=== PATIENT | male | born 1945 | race Caucasian/White ===

== ENCOUNTER 2017-04-01 13:32 | Inpatient (IN) ==
--- NOTE | 2017-04-01 14:00 | Emergency Department Note ---
Disposition Clinical Impression: Kidney stone, Elevated serum creatinine UTI (urinary tract infection) Qualifiers: Urinary tract infection type: site unspecified Hematuria presence: with hematuria Qualified Code(s): N39.0 - Urinary tract infection, site not specified Leukocytosis Qualifiers: Leukocytosis type: unspecified Qualified Code(s): D72.829 - Elevated white blood cell count, unspecified Disposition: Admitted As Inpatient Condition: Good General Adult HPI - General Chief complaint: ED Abdominal Pain Stated complaint: rt flank pain Time Seen by Provider: 04/01/17 13:40 Source: patient, EMS Limitations: no limitations Nursing Notes Reviewed: Yes Vital Signs Reviewed: Yes - History of Present Illness HPI Narrative: [facility] with severe hydronephrosis, elevated white count, evidence of UTI, elevated creatinine. Pain started last night. Similar to previous. Right flank. Sharp. Radiation to groin. [facility]'s [facility] highlights dictated below: White count of 18.2. Hemoglobin 16.6. Platelets of 189. Absolute neutrophil count elevated at 14.9. Sodium 142. Potassium 3.5. Chloride 105. CO2 28. Glucose 132. BUNs 25. Creatinine 1.62. GFR 44.9. Urinalysis shows turbid yellow urine with a specific gravity of 1.018 and a pH of 5.5 with protein of 30. Positive leuk esterase with greater than 180 WBCs. [address] abdomen and pelvis shows severe right hydronephrosis and hydroureter due to a 7 mm x 6 mm x 6 mm calculus in the distal right ureter there is nonspecific partially calcified area that could represent renal cell carcinoma and could be evaluated further with CT abdomen and pelvis without and with IV contrast. Inguinal hernias. Nonspecific prostate enlargement. Colonic diverticulosis. Bilateral nonobstructing renal calculi. Pain Scale: 0 - Related Data Allergies Allergy/AdvReac Type Severity Reaction Status Date / Time cefdinir [From Omnicef] Allergy See Verified 04/01/17 14:02 Comments Review of Systems: CONSTITUTIONAL: No weight loss, fever, chills, weakness or fatigue. HEENT: Eyes: No visual changes. Ears, Nose, Throat: No hearing loss, difficulty talking or unable to swallow. SKIN: No rash or itching. CARDIOVASCULAR: No chest pain, chest pressure or chest discomfort. No palpitations or edema. RESPIRATORY: No shortness of breath, cough or sputum. GASTROINTESTINAL: No anorexia, nausea, vomiting or diarrhea. No abdominal pain or blood. GENITOURINARY: No burning on urination or hematuria. NEUROLOGICAL: No headache, dizziness, syncope, paralysis, ataxia, numbness or tingling in the extremities. No change in bowel or bladder control. MUSCULOSKELETAL: No muscle pain, back pain, joint pain or stiffness. All systems ED: reviewed and negative except as stated. Past Medical History - Past Medical History Attestation: Yes The following information was validated with the patient. Source: patient, old records reviewed Medical history: Reports: hypertension, kidney stones - Social History Smoking Status: Never smoker Alcohol use: Reports: none Drug use: Reports: none Physical Exam General appearance: NAD, conversant Eyes: anicteric sclerae, moist conjunctivae; no lid-lag; PERRL HENT: Atraumatic; oropharynx clear with moist mucous membranes Neck: Normal appearance; Trachea midline Chest: Symmetrical chest rise; No respiratory distress Abdomen: Soft nontender to palpation. No CVA tenderness. Extremities: No peripheral edema or extremity tenderness Skin: Normal temperature, turgor and texture; no rash, ulcers or subcutaneous nodules Psych: Appropriate mood and affect Neuro: Awake and alert - General Limitations: no limitations General appearance: alert Course - Reevaluation(s) Reevaluation #1: Pain remains controlled. - Consultations Consultation #1: Discussed with urology. Patient febrile to the hospital service so they can consult. Recommends Levaquin 500 mg for antibiotic. Consultation #2: Discussed with hospitalist Dr. Delvalle. Patient accepted for admission. Vital Signs Temperature 98.1 F 04/01/17 13:36 Pulse Rate 78 04/01/17 13:36 Respiratory Rate 16 04/01/17 13:36 Blood Pressure 146/87 04/01/17 13:36 O2 Sat by Pulse Oximetry 96 04/01/17 13:36 Temperature 98.1 F 04/01/17 13:36 Pulse Rate 74 04/01/17 14:48 Respiratory Rate 16 04/01/17 15:42 Blood Pressure 143/90 04/01/17 15:42 O2 Sat by Pulse Oximetry 95 04/01/17 14:48 Oxygen Delivery Oxygen Delivery Room Air Medical Decision Making - Medical Records Medical records reviewed: Yes I reviewed the patient's medical records. - Lab Data Lab results reviewed: Yes I reviewed the patient's lab results. Lab Results 04/01/17 Range/Units 14:30 Urine Color Dark Yellow (Yellow) Urine Clarity Turbid A (Clear) Urine pH 5.5 (5.0-8.0) pH Units Ur Specific [place] 1.025 (1.010-1.025) Urine Protein Trace (Neg-Trace) mg/dL Urine Glucose (UA) Normal (Normal) mg/dL Urine Ketones Negative (Negative) mg/dL Urine Blood Moderate H (Negative) Urine Nitrite Negative (Negative) Urine Bilirubin Negative (Negative) Urine Urobilinogen Normal (Normal) mg/dL Ur Leukocyte Esterase Large H (Negative) Urine Microscopic RBC 5-15 H (0-3) per hpf Urine Microscopic WBC TNTC H (0-3) per hpf Ur Squamous Epith Cells Many H (None-Few) per lpf Ur Renal Epithelial Cell Few (None-Few) per hpf Urine Bacteria Few (None-Few) per hpf Hyaline Casts None Seen (None-Few) per lpf - Radiology Data Radiology results reviewed: Yes I reviewed the patient's radiology results. Attestation Statement - Attestation Attestation: I, Kedar Abdi, examined this patient and my medical decision-making was reviewed with the JACKAROO/PA/Advanced Practice Nurse/Resident Physician. I agree with the documented findings, disposition and treatment plan as described except to the extent set forth below. 72-year-old male sent to the emergency department from the [place] urgent care. Patient has a large ureteral stone with associated urinary tract infection. Patient states his pain is well controlled after administration of Toradol by the [place]. Patient also complains of having chills over the past 24 hours. Vital signs stable in the emergency department. He is afebrile emergency department however he will be started on antibiotics in the emergency department. Resident spoke with the urologist who recommended Levaquin. Patient is comfortable with the plan for admission to the hospital.
[2017-04-01] MEDS ORDERED: Levofloxacin 500 MG/100 ML 500 MG/100 ML BAG IVPB ONE (14:39)
[2017-04-01 14:57] LABS: Bilirubin,Urine Negative (Negative); Blood,Urine Moderate (Negative); Clarity,Urine Turbid (Clear); Color,Urine Dark Yellow (Yellow); Glucose,Urine (UA) Normal (Normal); Ketones,Urine Negative (Negative); Leukocyte Esterase,Urine Large (Negative); Nitrite,Urine Negative (Negative); PH,Urine 5.5 pH Units (5.0-8.0); Protein,Urine Trace mg/dL (Neg-Trace); Specific Gravity,Urine 1.025 (1.010-1.025); Urobilinogen,Urine Normal (Normal)
[2017-04-01 14:59] LABS: Bacteria,Urine Few per hpf (None-Few); Hyaline Casts,Urine None Seen per lpf (None-Few); Squamous Epithelial Cell,Urine Many per lpf (None-Few); WBC,Urine TNTC per hpf (0-3)
[2017-04-01 15:10] LABS: Renal Epithelial Cells,Urine Few per hpf (None-Few)
--- NOTE | 2017-04-01 17:03 | Urology - Consult Note ---
Date of Encounter: 04/01/17 Time of Encounter: 17:01 - Assessment and Plan (1) Right ureteral calculus Current Visit: Yes Status: Acute Assessment and plan: Plan be to take patient to the operating room tomorrow for cystoscopy and right ureteral stent placement. (2) Elevated serum creatinine Current Visit: Yes Status: Acute Assessment and plan: Will resolved with fluids and stenting of right ureter. (3) Right renal mass Current Visit: Yes Status: Acute Assessment and plan: This will need clarified with either CT with contrast or MRI with contrast. This can be done on outpatient basis Urology CN:AMAURY Consult date: 04/01/17 Reason for consult Urology: Hydronephrosis Requesting physician: Marcus Coffman History of present illness: Brandon is a 72-year-old male with a history of recent severe right-sided flank pain. He was seen at the [facility] where he was found to have a distal 7 x 8 mm ureteral stone on the right side. Causing significant hydronephrosis. Patient also found to have a possible calcified renal mass in the right side. This had slightly increased in size over the past couple of years. Patient states that his pain is currently controlled. He did have a elevated WBC count of 18,000. No fevers at this time. Past Med Surg Social Fam HX - Past Medical History Medical history: hypertension, kidney stones Psychiatric history: no psych history - Social History Smoking Status: Never smoker Smokeless Tobacco Status: No Alcohol use: none Drug use: none - Family History Mother Family Member Ethnicity: Non- Living Status: Hx Family GI Disorders: Yes (Kidney stones) Father History Unknown: Yes Adopted: No Family Member Ethnicity: Non- Living Status: Cause of : [place] Hx Family Cardiac Disorders: Yes ([place]) Brother History Unknown: Yes Family Member Ethnicity: Non- Living Status: Still Living Hx Family Endocrine Disorder: Yes (Diabetic) Medications and Allergies Aspirin 81 mg PO DAILY 04/01/17 [History] Carboxymethylcellulose Sodium [Refresh Liquigel] 1 drop BOTH EYES QID 04/01/17 [ History] Lisinopril [Zestril] 5 mg PO DAILY 04/01/17 [History] Methocarbamol [Robaxin] 500 mg PO BID 04/01/17 [History] Multivitamin [Multi-Day Vitamins] 1 each PO DAILY 04/01/17 [History] Naproxen [Naprosyn] 500 mg PO BID 04/01/17 [History] [place]-3/Dha/Epa/Fish Oil [Fish Oil 1,000 mg Softgel] 1,000 mg PO DAILY 04/01/17 [History] Omeprazole Magnesium [Prilosec Otc] 20 mg PO DAILY 04/01/17 [History] Terazosin HCl 4 mg PO 1800 04/01/17 [History] hydroCHLOROthiazide [Hydrochlorothiazide] 12.5 mg PO DAILY 04/01/17 [History] Allergies cefdinir [From Omnicef] Allergy (Verified 04/01/17 14:02) See Comments Review of Systems - Constitutional no fever(s) - EENT Nose, mouth and throat: no dizziness - Cardiovascular no chest pain - Gastrointestinal abdominal pain - Genitourinary flank pain - Musculoskeletal back pain - Integumentary no erythema - Psychiatric no anxiety - Hematologic/Lymphatic no easy bleeding Exam Initial Vital Signs Temp Pulse Resp BP Pulse Ox 98.1 F 78 16 146/87 96 04/01/17 13:36 04/01/17 13:36 04/01/17 13:36 04/01/17 13:36 04/01/17 13:36 - General physical appearance Present: well developed - Eyes Present: PERRL - ENT Present: normal nares - Neck Present: no masses - Respiratory Present: normal respiratory effort - Abdomen Abdomen: Present: soft - Integumentary Present: no rash Urology Results - Labs Abnormal lab results Urine Clarity Turbid (Clear) A 04/01/17 14:30 Urine Blood Moderate (Negative) H 04/01/17 14:30 Ur Leukocyte Esterase Large (Negative) H 04/01/17 14:30 Urine Microscopic RBC 5-15 per hpf (0-3) H 04/01/17 14:30 Urine Microscopic WBC TNTC per hpf (0-3) H 04/01/17 14:30 Ur Squamous Epith Cells Many per lpf (None-Few) H 04/01/17 14:30 All other labs normal. - Imaging CT scan - abdomen: image reviewed CT scan - pelvis: image reviewed Consult Discharge Plan - Plan [facility]errals: [facility] [Primary Care Provider] -
[2017-04-01] MEDS ORDERED: Naloxone 0.4 MG/ML INJ IVP PRN (17:50)
[2017-04-01] MEDS ORDERED: *HR* OxyCODONE Immed Rel 5 MG TABLET PO PRN (17:50)
[2017-04-01] MEDS ORDERED: *HR* HYDROmorphone (PF) 1 MG/ML SYRINGE IVP PRN (17:50)
--- NOTE | 2017-04-01 17:55 | Internal Med History&Physical ---
Date of Encounter: 04/01/17 Time of Encounter: 17:53 Assessment and Plan (1) Kidney stone Current visit: Yes Status: Acute Patient has right-sided kidney stone with hydronephrosis. Urology has been consulted, plan for intervention tomorrow. Keep nothing by mouth past midnight. Follow urology consultation. Denies hematuria at this time. (2) Elevated serum creatinine Current visit: Yes Status: Acute Most likely post obstructive in etiology from hydronephrosis. Will avoid nephrotoxic agents, hold naproxen and lisinopril for now that he was taking at home. Monitor Chem-7, we will keep IV fluids for tonight. (3) UTI (urinary tract infection) Current visit: Yes Status: Acute Patient denies any urinary symptoms at this time. However given the elevated white count, ureteric stone and hydronephrosis, will treat with levofloxacin as recommended by urology. Continue IV levofloxacin, follow urine culture results. Qualifiers: Urinary tract infection type: site unspecified Hematuria presence: with hematuria Qualified Code(s): N39.0 - Urinary tract infection, site not specified; R31.9 - Hematuria, unspecified (4) Right renal mass Current visit: Yes Status: Acute CT abdomen showed calcification questionable renal mass. This needs to be evaluated with IV contrast. However given HONG and planned intervention tomm, he needs to have this done once kidney fxn improves and which can be done as OP. Internal Medicine - H&P: HPI Chief complaint: rt. flank pain Admitted From: Intrahospital Transfer Plans for Post Hospital Care: Home History of present illness: Mr. Juarez is a 72 year old male transferred from the [place] urgent care secondary to kidney stone with severe hydronephrosis, elevated white count, UTI , elevated creatinine. As per the patient, Pain started last night which is at the right flank, radiating to groin. Patient denies any fever, burning micturition, nausea, vomiting. Patient reports that he has recurrent kidney stones since 1960s and has been requiring multiple treatments including lithotripsy. He says that he was given Toradol at the ED which helped the pain, however it is starting to pack up again. Urology was consulted from ED, Dr. vasques has seen the patient and has planned for intervention tomorrow. [facility] highlights dictated below: White count of 18.2. Hemoglobin 16.6. Platelets of 189. Absolute neutrophil count elevated at 14.9. Sodium 142. Potassium 3.5. Chloride 105. CO2 28. Glucose 132. BUNs 25. Creatinine 1.62. GFR 44.9. Urinalysis shows turbid yellow urine with a specific gravity of 1.018 and a pH of 5.5 with protein of 30. Positive leuk esterase with greater than 180 WBCs. [address] abdomen and pelvis shows severe right hydronephrosis and hydroureter due to a 7 mm x 6 mm x 6 mm calculus in the distal right ureter there is nonspecific partially calcified area that could represent renal cell carcinoma and could be evaluated further with CT abdomen and pelvis without and with IV contrast. Inguinal hernias. Nonspecific prostate enlargement. Colonic diverticulosis. Bilateral nonobstructing renal calculi. Past Med Surg Social Fam HX - Past Medical History Medical history: hypertension, kidney stones Psychiatric history: no psych history - Social History Smoking Status: Never smoker Smokeless Tobacco Status: No Alcohol use: none Drug use: none - Family History Mother Family Member Ethnicity: Non- Living Status: Hx Family GI Disorders: Yes (Kidney stones) Father History Unknown: Yes Adopted: No Family Member Ethnicity: Non- Living Status: Cause of : [place] Hx Family Cardiac Disorders: Yes ([place]) Brother History Unknown: Yes Family Member Ethnicity: Non- Living Status: Still Living Hx Family Endocrine Disorder: Yes (Diabetic) Internal Medicine - H&P: Meds Aspirin 81 mg PO DAILY 04/01/17 [History] Carboxymethylcellulose Sodium [Refresh Liquigel] 1 drop BOTH EYES QID 04/01/17 [ History] Lisinopril [Zestril] 5 mg PO DAILY 04/01/17 [History] Methocarbamol [Robaxin] 500 mg PO BID 04/01/17 [History] Multivitamin [Multi-Day Vitamins] 1 each PO DAILY 04/01/17 [History] Naproxen [Naprosyn] 500 mg PO BID 04/01/17 [History] [place]-3/Dha/Epa/Fish Oil [Fish Oil 1,000 mg Softgel] 1,000 mg PO DAILY 04/01/17 [History] Omeprazole Magnesium [Prilosec Otc] 20 mg PO DAILY 04/01/17 [History] Terazosin HCl 4 mg PO 1800 04/01/17 [History] hydroCHLOROthiazide [Hydrochlorothiazide] 12.5 mg PO DAILY 04/01/17 [History] Allergies cefdinir [From Omnicef] Allergy (Verified 04/01/17 14:02) See Comments All Systems PM: A 10-system review of systems was performed and is negative for pertinent findings except as documented above in the HPI. - Constitutional Constitutional: as per HPI - EENT Eyes: as per HPI Ears: as per HPI Nose, mouth and throat: as per HPI - Breasts Breasts: as per HPI - Cardiovascular Cardiovascular ROS IM: as per HPI - Respiratory Respiratory: as per HPI - Gastrointestinal Gastrointestinal: as per HPI - Genitourinary Genitourinary ROS male: flank pain - Musculoskeletal Musculoskeletal ROS IM: as per HPI - Integumentary Integumentary IM: as per HPI - Neurological Neurological ROS: as per HPI - Constitutional Vitals: Temp Pulse Resp BP Pulse Ox 98.4 F 66 17 160/94 98 04/01/17 16:00 04/01/17 16:00 04/01/17 16:00 04/01/17 16:00 04/01/17 16:00 General appearance: Present: A&O X 3, no acute distress Exam: Neck supple Chest bilateral clear, no added sounds. CVS S1 and S2, no murmurs rubs or gallops. Abdomen soft, nontender, bowel sounds are present. Right flank tenderness positive. Extremities no edema. Neuro no focal deficits
[2017-04-01] MEDS: *HR* Heparin 5,000 UNIT/ML VIAL SQ SCH (18:28)
--- NOTE | 2017-04-01 19:06 | Anesthesia Evaluation PreOp ---
Date of Encounter: 04/01/17 Time of Encounter: 19:00 - Past History Planned Operation: Cystoscopy Rt Stent Cardiac History: HTN Pulmonary History: Denies Any Significant HX INTERNET MARKETING SPECIALIST History: Denies Any Significant HX Other Medical History: Renal (Acute Renal Failure from Hydronephrosis) Anesthesia History: No Prior Anesthetic Complications Alcohol Use: none Drug use: none Medications and Allergies Aspirin 81 mg PO DAILY 04/01/17 [History] Carboxymethylcellulose Sodium [Refresh Liquigel] 1 drop BOTH EYES QID 04/01/17 [ History] Lisinopril [Zestril] 5 mg PO DAILY 04/01/17 [History] Methocarbamol [Robaxin] 500 mg PO BID 04/01/17 [History] Multivitamin [Multi-Day Vitamins] 1 each PO DAILY 04/01/17 [History] Naproxen [Naprosyn] 500 mg PO BID 04/01/17 [History] [place]-3/Dha/Epa/Fish Oil [Fish Oil 1,000 mg Softgel] 1,000 mg PO DAILY 04/01/17 [History] Omeprazole Magnesium [Prilosec Otc] 20 mg PO DAILY 04/01/17 [History] Terazosin HCl 4 mg PO 1800 04/01/17 [History] hydroCHLOROthiazide [Hydrochlorothiazide] 12.5 mg PO DAILY 04/01/17 [History] Allergies cefdinir [From Omnicef] Allergy (Verified 04/01/17 14:02) See Comments - Meds/Allergy Pre-op Review Medications Reviewed: Yes Allergies Reviewed: Yes Beta Blockers on Current Med List: No Anesthesia Results - Labs Laboratory Tests 09/08/14 09/08/14 07:52 07:52 Hgb 11.6 L Hct 36.4 L Plt Count 161 Sodium 140 Potassium 3.7 BUN 11 Creatinine 0.84 - Imaging EKG: pending Anesthesia Exam O2 Sat Height 1.8 m Height 1.8 m Weight 95.254 kg Weight 95.073 kg O2 Sat by Pulse Oximetry 98 O2 Sat by Pulse Oximetry 95 O2 Sat by Pulse Oximetry 96 O2 Sat by Pulse Oximetry 96 Vital Signs Temp Pulse Resp BP Pulse Ox 98.1 F 78 16 146/87 96 04/01/17 13:36 04/01/17 13:36 04/01/17 13:36 04/01/17 13:36 04/01/17 13:36 Height: 5'11 Weight: 210 lbs NPO (# of Hours): MN Pain Scale: 0 - HEENT Pupil (Motor): Pupils equal, EOMI Mallampati: II Teeth: Missing, Edentulous Oral Opening: Greater than 3 - INTERNET MARKETING SPECIALIST LOC: Oriented INTERNET MARKETING SPECIALIST Motor: Normal RUE, Normal LUE, Normal RLE, Normal LLE, Normal Face INTERNET MARKETING SPECIALIST Sensory: Normal: RUE, LUE, RLE, LLE, Face - Cardiac Rhythm: Regular Murmur: None JVD: No Carotid Bruit: No - Pulmonary Breath Sounds: bilateral Clear Respiratory Effort: Symmetrical Anesthesia Assess/Plan ASA Score: 3 (HTN Extreme of Age, ARF) Modified Carolyn Scale for Level of Consciousness: Cooperative, oriented, and tranquil Anesthetic Plan: General Monitoring Plan: Standard Monitors Recovery Plan: PACU (Discussed GA, agrees to proceed)
[2017-04-01] MEDS: Methocarbamol 500 MG TABLET PO SCH (20:33)
[2017-04-01] MEDS: Acetaminophen 325 MG TABLET PO PRN (20:33)
[2017-04-02 04:01] LABS: Calcium 9.3 mg/dL (8.6-10.8); Potassium 3.2 mEq/L (3.5-4.5)
[2017-04-02] MEDS: *HR* Heparin 5,000 UNIT/ML VIAL SQ SCH ×2 (04:01→19:18)
[2017-04-02 04:03] LABS: Basophils % 0.2 %; Eosinophils # 0.1 K/mcL (0.0-0.6); Eosinophils % 0.6 %; Hematocrit 44.3 % (37.5-50.1); Hemoglobin 14.7 g/dL (12.9-16.9); Immature Granulocytes % 0.6 % (0-4); Lymphocytes # 2.1 K/mcL (0.6-4.6); Lymphocytes % 12.3 %; Mean Corpuscular HGB Conc 33.2 g/dL (31.6-35.5); Mean Corpuscular Volume 90.4 fL (83.0-100.0); Mean Platelet Volume 10.7 fL (9.4-12.4); Monocytes # 1.5 K/mcL (0.0-1.3); Monocytes % 9.2 %; Neutrophils # 12.9 K/mcL (1.6-8.9); Platelet Count 171 K/mcL (140-400); Red Cell Distribution Width 13.2 % (11.5-14.5); Segmented Neutrophils % 77.1 %
[2017-04-02] MEDS: Methocarbamol 500 MG TABLET PO SCH ×2 (07:05→20:02)
[2017-04-02] MEDS: Acetaminophen 325 MG TABLET PO PRN (07:11)
[2017-04-02] MEDS ORDERED: Aspirin 81 MG TAB.CHEW PO SCH (09:00)
--- NOTE | 2017-04-02 09:27 | Urology Progress Note ---
Date of Encounter: 04/02/17 Time of Encounter: 09:25 - Assessment and Plan (1) Right ureteral calculus Current Visit: Yes Status: Acute Assessment and plan: to or today for stent placement. (2) Elevated serum creatinine Current Visit: Yes Status: Acute (3) Right renal mass Current Visit: Yes Status: Acute Progress Note Narrative: patient seen. patient with fever last night. Objective Initial Vital Signs Temp Pulse Resp BP Pulse Ox 98.1 F 78 16 146/87 96 04/01/17 13:36 04/01/17 13:36 04/01/17 13:36 04/01/17 13:36 04/01/17 13:36 - General physical appearance Present: well developed - Abdomen Present: soft - Labs 04/02/17 03:22 04/02/17 03:22 Diabetes panel 04/02/17 Range/Units 03:22 Sodium 138 (136-145) mEq/L Potassium 3.2 L (3.5-4.5) mEq/L Chloride 105 (98-109) mEq/L Carbon Dioxide 24 (19-29) mEq/L BUN 30 H (8-26) mg/dL Creatinine 1.82 H (0.72-1.25) mg/dL Glucose 125 H (70-99) mg/dL Calcium 9.3 (8.6-10.8) mg/dL Calcium panel 04/02/17 Range/Units 03:22 Calcium 9.3 (8.6-10.8) mg/dL Pituitary panel 04/02/17 Range/Units 03:22 Sodium 138 (136-145) mEq/L Potassium 3.2 L (3.5-4.5) mEq/L Chloride 105 (98-109) mEq/L Carbon Dioxide 24 (19-29) mEq/L BUN 30 H (8-26) mg/dL Creatinine 1.82 H (0.72-1.25) mg/dL Glucose 125 H (70-99) mg/dL Calcium 9.3 (8.6-10.8) mg/dL Adrenal panel 04/02/17 Range/Units 03:22 Sodium 138 (136-145) mEq/L Potassium 3.2 L (3.5-4.5) mEq/L Chloride 105 (98-109) mEq/L Carbon Dioxide 24 (19-29) mEq/L BUN 30 H (8-26) mg/dL Creatinine 1.82 H (0.72-1.25) mg/dL Glucose 125 H (70-99) mg/dL Calcium 9.3 (8.6-10.8) mg/dL Consult Discharge Plan - Plan [facility]errals: [facility] [Primary Care Provider] -
--- NOTE | 2017-04-02 10:05 | Internal Med Progress Note ---
Date of Encounter: 04/02/17 Time of Encounter: 09:15 - Assessment and plan (1) Right ureteral calculus Current Visit: Yes Status: Acute Assessment and plan: [facility]-sided hydronephrosis and hydroureter with an obstructing calculus. Urology is on board, plan is for stent placement later today. Patient's pain is currently controlled. He denies nausea. Awaiting OR. [facility]: CT abdomen and pelvis shows severe right hydronephrosis and hydroureter due to a 7 mm x 6 mm x 6 mm calculus in the distal right ureter there is nonspecific partially calcified area that could represent renal cell carcinoma and could be evaluated further with CT abdomen and pelvis without and with IV contrast. Inguinal hernias. Nonspecific prostate enlargement. Colonic diverticulosis. Bilateral nonobstructing renal calculi. (2) UTI (urinary tract infection) Current Visit: Yes Status: Acute Assessment and plan: Urinalysis consistent with urinary tract infection. Continue levofloxacin. Low -grade fever noted this morning with leukocytosis. Vital signs are stable- mild tachycardia noted in setting of fever. BP stable. Meets SIRS criteria. On examination, patient is alert and oriented x3. He states his pain is controlled. He is diaphoretic and pale, capillary refill brisk to all four extremities. Will initiated IVF and monitor closely for signs of sepsis. Will check lactic acid levels as well as blood cultures. Suspect VS and Sx will improve with stent placement per Urology. Qualifiers: Urinary tract infection type: site unspecified Hematuria presence: with hematuria Qualified Code(s): N39.0 - Urinary tract infection, site not specified; R31.9 - Hematuria, unspecified (3) Right renal mass Current Visit: Yes Status: Acute Assessment and plan: Recommendation is for outpatient follow-up (4) Leukocytosis Current Visit: Yes Status: Acute (5) HONG (acute kidney injury) Current Visit: Yes Status: Acute Assessment and plan: Likely secondary to obstructive renal calculi, will trend. Urology is on board , OR later today. (6) Hypokalemia Current Visit: Yes Status: Acute Assessment and plan: Repleted with IV fluids, will trend - Subjective Interval history: Patient seen and examined. On examination, patient resting supine in bed. Patient stating his pain is currently at a tolerable level. He denies nausea. He denies shortness of breath. He denies concerns or questions at this time. - Constitutional Vitals: Temp Pulse Resp BP Pulse Ox 99.3 F 94 15 146/77 92 04/02/17 09:37 04/02/17 06:55 04/02/17 06:55 04/02/17 06:55 04/02/17 07:13 General appearance: Present: A&O X 3, pleasant, no acute distress, answers questions appropriately - Head Head exam: Present: atraumatic, normocephalic - Eye Eye exam: Present: PERRL, conjuntiva pink, sclera anicteric Pupils: Present: PERRL - Neck Neck exam general surgery: Present: supple, trachea midline. Absent: lymphadenopathy - Respiratory Respiratory exam: Present: CTAB. Absent: accessory muscle use, rales, respiratory distress, rhonchi, wheezes - Cardiovascular Cardiovascular exam: Present: RRR, +S1, +S2. Absent: diastolic murmur, gallop, rubs, systolic murmur - GI/Abdominal GI/Abdominal exam: Present: distended, hypoactive bowel sounds, soft, tenderness , no peritoneal signs - Extremities Exam Extremities exam: Present: warm, radial pulses palpable and symetrical. Absent : calf tenderness, cyanotic, pedal edema - Neurological Exam Neurological exam: Present: alert, CN II-XII intact, oriented X3, no focal deficits, strengths equal and symetr throughout. Absent: pronater drift, facial droop, speech deficit - Skin Skin exam: Present: diaphoretic, intact, pallor, warm Internal Medicine: Result - Labs CBC & Chem 7: 04/02/17 03:22 04/02/17 03:22 Labs: Short CBC 04/02/17 Range/Units 03:22 WBC 16.7 H (4.3-11.1) K/mcL Hgb 14.7 (12.9-16.9) g/dL Hct 44.3 (37.5-50.1) % Plt Count 171 (140-400) K/mcL Neutrophils # 12.9 H (1.6-8.9) K/mcL BMP 04/02/17 03:22 Sodium 138 Potassium 3.2 L Chloride 105 Carbon Dioxide 24 BUN 30 H Creatinine 1.82 H Glucose 125 H Calcium 9.3 Consult Discharge Plan - Plan [facility]errals: [facility] [Primary Care Provider] -
[2017-04-02] MEDS ORDERED: 0.9 % Sodium Chloride w KCl 40 MEQ/1,000 ML MLS IVC SCH (10:15)
[2017-04-02] MEDS ORDERED: *HR* Midazolam HCl 2 MG/2 ML VIAL ONE (15:25)
[2017-04-02] MEDS ORDERED: Lidocaine -MPF 2% 2 ML VIAL ONE (15:38)
[2017-04-02] MEDS ORDERED: *HR* Propofol 200 MG/20 ML VIAL IVP ONE (15:38)
[2017-04-02] MEDS ORDERED: *HR* FentaNYL (PF) 100 MCG/2 ML VIAL ONE (15:38)
[2017-04-02] MEDS ORDERED: Ondansetron 4 MG/2 ML VIAL ONE (15:38)
--- NOTE | 2017-04-02 16:35 | Operative Note ---
Date of procedure: 04/02/17 Pre-op diagnosis: right ureteral stone and fever Post-op diagnosis: same Procedure: Cystoscopy and right 6 x 28 cm ureteral stent placement Anesthesia: LACHO Surgeon: Melchor Wall Condition: stable Disposition: PACU Procedure in Detail: Patient was prepped and draped in normal sterile fashion. Timeout procedure performed. I then inserted the cystoscope into the patient's bladder. Patient had mild to moderate trilobar prostatic enlargement. At this point I then cannulated the right ureteral orifice using a Glidewire. Gross pus was seen coming from the right ureteral orifice after placing the wire into the right kidney using fluoroscopy. I then placed a 6 x 28 cm stent with continued pus seen coming from the right ureter. I then elected to place an 16-Danish catheter at the end the procedure. This will be removed tomorrow. Patient tolerated well and was taken to PACU in stable condition
[2017-04-02] MEDS ORDERED: Albuterol 2.5 MG/3 ML NEBULIZER IH PRN (16:44)
[2017-04-02] MEDS ORDERED: Ondansetron 4 MG/2 ML VIAL IVP PRN (16:44)
--- NOTE | 2017-04-02 17:03 | Anesthesia Evaluation Post Op ---
Date of Encounter: 04/02/17 Time of Encounter: 17:03 - Vital Signs Vital Signs: Vital Signs/O2 Sat, Most Current Temp Pulse Resp BP Pulse Ox 99.5 F 92 18 139/90 95 04/02/17 16:35 04/02/17 16:55 04/02/17 16:55 04/02/17 16:55 04/02/17 16:55 - Lungs Lungs: Clear Ascult./Percussion - Airway Airway: Non-obstructed - Cardiovascular Regular Rate - Mental Status Mental Status: Alert & Oriented, Answers Appropriately - Pain Pain Scale: 0 Pain Scale used: Numeric (1 - 10) - Nausea Vomiting Nausea Vomiting: Not Present - Hydration Hydration: Ice chips, White catheter - Discharge PostOp Status: Transfer Patient to floor
[2017-04-02] MEDS ORDERED: Naloxone 0.4 MG/ML INJ IVP PRN (17:28)
[2017-04-02] MEDS ORDERED: Acetaminophen 325 MG TABLET PO PRN (17:28)
[2017-04-02] MEDS ORDERED: *HR* OxyCODONE Immed Rel 5 MG TABLET PO PRN (17:28)
[2017-04-02] MEDS ORDERED: *HR* HYDROmorphone (PF) 1 MG/ML SYRINGE IVP PRN (17:28)
[2017-04-02] MEDS ORDERED: Levofloxacin 500 MG/100 ML 500 MG/100 ML BAG IVPB SCH (19:00)
[2017-04-02] MEDS: 0.9 % Sodium Chloride w KCl 40 MEQ/1,000 ML MLS IVC SCH (19:17)
[2017-04-02] MEDS: Levofloxacin 250 MG/50 ML 250 MG/50 ML BAG IVPB SCH (19:18)
[2017-04-03] MEDS ORDERED: Melatonin 3 MG TABLET PO PRN (02:46)
[2017-04-03 04:07] LABS: Basophils % 0.4 %; Eosinophils # 0.2 K/mcL (0.0-0.6); Eosinophils % 1.4 %; Hematocrit 38.7 % (37.5-50.1); Immature Granulocytes % 0.5 % (0-4); Lymphocytes # 1.5 K/mcL (0.6-4.6); Lymphocytes % 13.3 %; Mean Corpuscular HGB Conc 33.1 g/dL (31.6-35.5); Mean Corpuscular Volume 90.8 fL (83.0-100.0); Mean Platelet Volume 10.9 fL (9.4-12.4); Monocytes # 0.9 K/mcL (0.0-1.3); Neutrophils # 8.5 K/mcL (1.6-8.9); Platelet Count 147 K/mcL (140-400); Red Blood Count 4.26 M/mcL (4.19-5.50); Red Cell Distribution Width 13.3 % (11.5-14.5); Segmented Neutrophils % 76.4 %
[2017-04-03 04:13] LABS: Hemoglobin 12.8 g/dL (12.9-16.9)
[2017-04-03 04:22] LABS: BUN/Creatinine Ratio 17 (6-26); Blood Urea Nitrogen 22 mg/dL (8-26); Calcium 8.5 mg/dL (8.6-10.8); Carbon Dioxide 23 mEq/L (19-29); Chloride 110 mEq/L (98-109); Glucose 145 mg/dL (70-99); Magnesium 1.8 mg/dL (1.6-2.6); Osmolality,Calculated 294 (280-300); Potassium 3.6 mEq/L (3.5-4.5); Sodium 139 mEq/L (136-145); eGFR For African Americans > 60 (> 60); eGFR For Non-African Americans 54 (> 60)
[2017-04-03] MEDS: 0.9 % Sodium Chloride w KCl 40 MEQ/1,000 ML MLS IVC SCH ×2 (05:58→16:36)
[2017-04-03] MEDS: *HR* Heparin 5,000 UNIT/ML VIAL SQ SCH ×2 (05:58→18:22)
[2017-04-03] MEDS: Methocarbamol 500 MG TABLET PO SCH ×2 (09:04→20:05)
[2017-04-03] MEDS: Aspirin 81 MG TAB.CHEW PO SCH (09:04)
--- NOTE | 2017-04-03 10:52 | Urology Progress Note ---
Date of Encounter: 04/03/17 Time of Encounter: 10:50 - Assessment and Plan (1) Right ureteral calculus Current Visit: Yes Status: Acute Assessment and plan: sp stenting. (2) Elevated serum creatinine Current Visit: Yes Status: Acute Assessment and plan: improving. (3) Right renal mass Current Visit: Yes Status: Acute (4) UTI (urinary tract infection) Current Visit: Yes Status: Acute Assessment and plan: continue abx at this time. Qualifiers: Urinary tract infection type: site unspecified Hematuria presence: with hematuria Qualified Code(s): N39.0 - Urinary tract infection, site not specified; R31.9 - Hematuria, unspecified Progress Note Narrative: patient seen. pod 1 from right stent placement. doing better, but with fevers last night. Objective Initial Vital Signs Temp Pulse Resp BP Pulse Ox 98.1 F 78 16 146/87 96 04/01/17 13:36 04/01/17 13:36 04/01/17 13:36 04/01/17 13:36 04/01/17 13:36 - General physical appearance Present: well developed - Abdomen Present: soft - Labs 04/03/17 03:42 04/03/17 03:42 Diabetes panel 04/03/17 Range/Units 03:42 Sodium 139 (136-145) mEq/L Potassium 3.6 (3.5-4.5) mEq/L Chloride 110 H (98-109) mEq/L Carbon Dioxide 23 (19-29) mEq/L BUN 22 (8-26) mg/dL Creatinine 1.31 H (0.72-1.25) mg/dL Glucose 145 H (70-99) mg/dL Calcium 8.5 L (8.6-10.8) mg/dL Calcium panel 04/03/17 Range/Units 03:42 Calcium 8.5 L (8.6-10.8) mg/dL Pituitary panel 04/03/17 Range/Units 03:42 Sodium 139 (136-145) mEq/L Potassium 3.6 (3.5-4.5) mEq/L Chloride 110 H (98-109) mEq/L Carbon Dioxide 23 (19-29) mEq/L BUN 22 (8-26) mg/dL Creatinine 1.31 H (0.72-1.25) mg/dL Glucose 145 H (70-99) mg/dL Calcium 8.5 L (8.6-10.8) mg/dL Adrenal panel 04/03/17 Range/Units 03:42 Sodium 139 (136-145) mEq/L Potassium 3.6 (3.5-4.5) mEq/L Chloride 110 H (98-109) mEq/L Carbon Dioxide 23 (19-29) mEq/L BUN 22 (8-26) mg/dL Creatinine 1.31 H (0.72-1.25) mg/dL Glucose 145 H (70-99) mg/dL Calcium 8.5 L (8.6-10.8) mg/dL - VTE Documentation of Mechanical Device: Intermittent pneumatic compression device Consult Discharge Plan - Plan [facility]errals: [facility] [Primary Care Provider] -
[2017-04-03] MEDS: Levofloxacin 250 MG/50 ML 250 MG/50 ML BAG IVPB SCH (18:22)
--- NOTE | 2017-04-03 19:12 | Internal Med Progress Note ---
Date of Encounter: 04/03/17 Time of Encounter: 17:30 - Assessment and plan (1) Right ureteral calculus Current Visit: Yes Status: Acute Assessment and plan: s/p stent placement yesterday. Patient stated he no longer has pain. He does endorse mild dysuria. We will observe overnight and likely discharge tomorrow pending clinical outcomes. 04/02/17 [facility] severe right-sided hydronephrosis and hydroureter with an obstructing calculus. Urology is on board, plan is for stent placement later today. Patient's pain is currently controlled. He denies nausea. Awaiting OR. [facility]: CT abdomen and pelvis shows severe right hydronephrosis and hydroureter due to a 7 mm x 6 mm x 6 mm calculus in the distal right ureter there is nonspecific partially calcified area that could represent renal cell carcinoma and could be evaluated further with CT abdomen and pelvis without and with IV contrast. Inguinal hernias. Nonspecific prostate enlargement. Colonic diverticulosis. Bilateral nonobstructing renal calculi. (2) UTI (urinary tract infection) Current Visit: Yes Status: Acute Assessment and plan: Urinalysis consistent with urinary tract infection. Continue levofloxacin. Low -grade fever has subsided as has his leukocytosis. Vital signs remain stable. No longer meets SIRS criteria. He now denies pain. I spoke to ana today who states his sensitivities for his urine culture will be available tomorrow. Qualifiers: Urinary tract infection type: site unspecified Hematuria presence: with hematuria Qualified Code(s): N39.0 - Urinary tract infection, site not specified; R31.9 - Hematuria, unspecified (3) Right renal mass Current Visit: Yes Status: Acute Assessment and plan: Recommendation is for outpatient follow-up (4) Leukocytosis Current Visit: Yes Status: Acute (5) HONG (acute kidney injury) Current Visit: Yes Status: Acute Assessment and plan: Improved and nearly resolved, will recheck in the morning (6) Hypokalemia Current Visit: Yes Status: Resolved - Subjective Interval history: Patient seen and examined. On examination, patient sitting upright in bed. Patient is alert and oriented 3 and currently denies pain. He states he is feeling a lot better today. He is tolerating a regular diet and denies concerns at this time. - Constitutional Vitals: Temp Pulse Resp BP Pulse Ox 98.2 F 85 16 148/80 96 04/03/17 18:42 04/03/17 18:42 04/03/17 18:42 04/03/17 18:42 04/03/17 18:42 General appearance: Present: A&O X 3, pleasant, no acute distress, answers questions appropriately - Head Head exam: Present: atraumatic, normocephalic - Eye Eye exam: Present: PERRL, conjuntiva pink, sclera anicteric Pupils: Present: PERRL - Neck Neck exam general surgery: Present: supple, trachea midline. Absent: lymphadenopathy - Respiratory Respiratory exam: Present: CTAB. Absent: accessory muscle use, rales, respiratory distress, rhonchi, wheezes - Cardiovascular Cardiovascular exam: Present: RRR, +S1, +S2. Absent: diastolic murmur, gallop, rubs, systolic murmur - GI/Abdominal GI/Abdominal exam: Present: distended, normal bowel sounds, soft, no peritoneal signs. Absent: tenderness - Extremities Exam Extremities exam: Present: warm, radial pulses palpable and symmetrical. Absent : calf tenderness, cyanotic, pedal edema - Neurological Exam Neurological exam: Present: alert, CN II-XII intact, oriented X3, no focal deficits, strengths equal and symetr throughout. Absent: pronater drift, facial droop, speech deficit - Skin Skin exam: Present: dry, intact, pallor, warm Internal Medicine: Result - Labs CBC & Chem 7: 04/03/17 03:42 04/03/17 03:42 Labs: Short CBC 04/03/17 Range/Units 03:42 WBC 11.1 (4.3-11.1) K/mcL Hgb 12.8 L D (12.9-16.9) g/dL Hct 38.7 (37.5-50.1) % Plt Count 147 (140-400) K/mcL Neutrophils # 8.5 (1.6-8.9) K/mcL BMP 04/03/17 03:42 Sodium 139 Potassium 3.6 Chloride 110 H Carbon Dioxide 23 BUN 22 Creatinine 1.31 H Glucose 145 H Calcium 8.5 L - VTE Documentation of Mechanical Device: Intermittent pneumatic compression device Consult Discharge Plan - Plan [facility]errals: [facility] [Primary Care Provider] -
[2017-04-04] MEDS: 0.9 % Sodium Chloride w KCl 40 MEQ/1,000 ML MLS IVC SCH (03:47)
[2017-04-04 04:30] LABS: BUN/Creatinine Ratio 21 (6-26); Blood Urea Nitrogen 22 mg/dL (8-26); Calcium 8.8 mg/dL (8.6-10.8); Carbon Dioxide 23 mEq/L (19-29); Chloride 113 mEq/L (98-109); Glucose 119 mg/dL (70-99); Osmolality,Calculated 298 (280-300); Potassium 3.8 mEq/L (3.5-4.5); Sodium 142 mEq/L (136-145); eGFR For African Americans > 60 (> 60); eGFR For Non-African Americans > 60 (> 60)
[2017-04-04] MEDS: *HR* Heparin 5,000 UNIT/ML VIAL SQ SCH ×2 (05:39→18:03)
--- NOTE | 2017-04-04 07:33 | Urology Progress Note ---
Date of Encounter: 04/04/17 Time of Encounter: 07:31 - Assessment and Plan (1) Right ureteral calculus Current Visit: Yes Status: Acute Assessment and plan: sp stenting. recommend to wait for cultures to return to have culture specific abx for 2 weeks. I will make f/u appt with patient, but will have to go through [place] to get approved. we will call patient with appt. (2) Elevated serum creatinine Current Visit: Yes Status: Acute (3) Right renal mass Current Visit: Yes Status: Acute (4) UTI (urinary tract infection) Current Visit: Yes Status: Acute Qualifiers: Urinary tract infection type: site unspecified Hematuria presence: with hematuria Qualified Code(s): N39.0 - Urinary tract infection, site not specified; R31.9 - Hematuria, unspecified Progress Note Narrative: Patient seen. feeling much better. cultures should be finalized today. Objective Initial Vital Signs Temp Pulse Resp BP Pulse Ox 98.1 F 78 16 146/87 96 04/01/17 13:36 04/01/17 13:36 04/01/17 13:36 04/01/17 13:36 04/01/17 13:36 - General physical appearance Present: well developed - Abdomen Present: soft - Labs 04/03/17 03:42 04/04/17 04:03 Diabetes panel 04/04/17 Range/Units 04:03 Sodium 142 (136-145) mEq/L Potassium 3.8 (3.5-4.5) mEq/L Chloride 113 H (98-109) mEq/L Carbon Dioxide 23 (19-29) mEq/L BUN 22 (8-26) mg/dL Creatinine 1.03 (0.72-1.25) mg/dL Glucose 119 H (70-99) mg/dL Calcium 8.8 (8.6-10.8) mg/dL Calcium panel 04/04/17 Range/Units 04:03 Calcium 8.8 (8.6-10.8) mg/dL Pituitary panel 04/04/17 Range/Units 04:03 Sodium 142 (136-145) mEq/L Potassium 3.8 (3.5-4.5) mEq/L Chloride 113 H (98-109) mEq/L Carbon Dioxide 23 (19-29) mEq/L BUN 22 (8-26) mg/dL Creatinine 1.03 (0.72-1.25) mg/dL Glucose 119 H (70-99) mg/dL Calcium 8.8 (8.6-10.8) mg/dL Adrenal panel 04/04/17 Range/Units 04:03 Sodium 142 (136-145) mEq/L Potassium 3.8 (3.5-4.5) mEq/L Chloride 113 H (98-109) mEq/L Carbon Dioxide 23 (19-29) mEq/L BUN 22 (8-26) mg/dL Creatinine 1.03 (0.72-1.25) mg/dL Glucose 119 H (70-99) mg/dL Calcium 8.8 (8.6-10.8) mg/dL - VTE Documentation of Mechanical Device: Intermittent pneumatic compression device Consult Discharge Plan - Plan [facility]errals: [facility] [Primary Care Provider] -
[2017-04-04] MEDS: Aspirin 81 MG TAB.CHEW PO SCH (08:57)
[2017-04-04] MEDS: Methocarbamol 500 MG TABLET PO SCH ×2 (08:57→21:18)
[2017-04-04] MEDS: hydroCHLOROthiazide 25 MG TABLET PO SCH (09:58)
[2017-04-04] MEDS ORDERED: Vancomycin 1,500 MG in D5% in Water 250 ML IVPB SCH (10:00)
[2017-04-04] MEDS: Artificial Tears SOLN 15 ML BOTTLE BOTH EYES SCH ×4 (10:00→21:38)
[2017-04-04] MEDS: Vancomycin 1,500 MG in D5% in Water 250 ML IVPB SCH ×2 (11:42→23:35)
--- NOTE | 2017-04-04 15:24 | Internal Med Progress Note ---
Date of Encounter: 04/04/17 Time of Encounter: 13:30 - Assessment and plan (1) UTI (urinary tract infection) Current Visit: Yes Status: Acute Assessment and plan: Pt's urine cx growing G +ve cocci Since he is allergic cephalosporins with Hives started him on Vancomycin hoping he can go home on PCN.. need to wait for full susceptibility Need 2 week of abx course Qualifiers: Urinary tract infection type: site unspecified Hematuria presence: with hematuria Qualified Code(s): N39.0 - Urinary tract infection, site not specified; R31.9 - Hematuria, unspecified (2) Right ureteral calculus Current Visit: Yes Status: Acute Assessment and plan: s/p stent cont close monitoring Urology on board (3) Right renal mass Current Visit: Yes Status: Acute Assessment and plan: Need close f/u as an out pt will arrange for out pt f/u with Nephrology (4) HONG (acute kidney injury) Current Visit: Yes Status: Acute Assessment and plan: Improved avoid any nephro toxic meds (5) Hypertension, essential Current Visit: Yes Status: Acute Assessment and plan: resumed his home meds inc Lisinopril to 10mg - Subjective Interval history: Mr. Juarez is a 72 year old male [facility] with severe hydronephrosis, elevated white count, UTI , elevated creatinine. CT abdomen and pelvis shows severe right hydronephrosis and hydroureter due to a 7 mm x 6 mm x 6 mm calculus in the distal right ureter there is nonspecific partially calcified area that could represent renal cell carcinoma and could be evaluated further with CT abdomen and pelvis without and with IV contrast. Pt went for cystoscopy and Rt ureter stent placement on 04/02/17. His pain is tolerable with current medication. Denied any CP / SOB - Constitutional Vitals: Temp Pulse Resp BP Pulse Ox 98.4 F 76 16 178/83 95 04/04/17 12:27 04/04/17 12:27 04/04/17 12:27 04/04/17 12:27 04/04/17 12:27 General appearance: Present: A&O X 3, pleasant, no acute distress, answers questions appropriately - Head Head exam: Present: atraumatic, normal inspection - Respiratory Respiratory exam: Present: decreased breath sounds, wheezes. Absent: rales, respiratory distress, rhonchi - Cardiovascular Cardiovascular exam: Present: RRR, +S1, +S2. Absent: systolic murmur - GI/Abdominal GI/Abdominal exam: Present: normal bowel sounds, soft. Absent: rebound, rigid, tenderness - Extremities Exam Extremities exam: Absent: calf tenderness, pedal edema, tenderness - Back Exam Back exam: Absent: CVA tenderness (L), CVA tenderness (R) - Psychiatric Psychiatric exam: Present: normal affect, normal mood Internal Medicine: Result - Labs CBC & Chem 7: 04/03/17 03:42 04/04/17 04:03 Labs: BMP 04/04/17 04:03 Sodium 142 Potassium 3.8 Chloride 113 H Carbon Dioxide 23 BUN 22 Creatinine 1.03 Glucose 119 H Calcium 8.8 - VTE Documentation of Mechanical Device: Intermittent pneumatic compression device Consult Discharge Plan - Plan Referrals: [facility] [Primary Care Provider] -
[2017-04-04] MEDS: Levofloxacin 500 MG/100 ML 500 MG/100 ML BAG IVPB SCH (18:07)
[2017-04-05] MEDS: *HR* Heparin 5,000 UNIT/ML VIAL SQ SCH ×2 (05:04→18:08)
[2017-04-05] MEDS: Artificial Tears SOLN 15 ML BOTTLE BOTH EYES SCH ×4 (08:54→21:58)
[2017-04-05] MEDS: Aspirin 81 MG TAB.CHEW PO SCH (08:54)
[2017-04-05] MEDS: hydroCHLOROthiazide 25 MG TABLET PO SCH (08:54)
[2017-04-05] MEDS: Methocarbamol 500 MG TABLET PO SCH ×2 (08:55→21:58)
[2017-04-05] MEDS: Vancomycin 1,500 MG in D5% in Water 250 ML IVPB SCH (11:20)
--- NOTE | 2017-04-05 16:49 | Internal Med Progress Note ---
Date of Encounter: 04/05/17 Time of Encounter: 16:47 - Assessment and plan (1) UTI (urinary tract infection) Current Visit: Yes Status: Acute Assessment and plan: Pt's urine cx growing G +ve cocci Since he is allergic cephalosporins with Hives Cont Vancomycin for now hoping he can go home on PCN.. need to wait for full susceptibility Need 2 week of abx course as per urology recommendation Qualifiers: Urinary tract infection type: site unspecified Hematuria presence: with hematuria Qualified Code(s): N39.0 - Urinary tract infection, site not specified; R31.9 - Hematuria, unspecified (2) Right ureteral calculus Current Visit: Yes Status: Acute Assessment and plan: s/p stent cont close monitoring Urology on board (3) Right renal mass Current Visit: Yes Status: Acute Assessment and plan: Need close f/u as an out pt will arrange for out pt f/u with Nephrology (4) HONG (acute kidney injury) Current Visit: Yes Status: Acute Assessment and plan: Improved avoid any nephro toxic meds (5) Hypertension, essential Current Visit: Yes Status: Acute Assessment and plan: resumed his home meds inc Lisinopril to 10mg stable BP - Subjective Interval history: Mr. Juarez is a 72 year old male [facility] kidney [facility] with severe hydronephrosis, elevated white count, UTI , elevated creatinine. CT abdomen and pelvis shows severe right hydronephrosis and hydroureter due to a 7 mm x 6 mm x 6 mm calculus in the distal right ureter there is nonspecific partially calcified area that could represent renal cell carcinoma and could be evaluated further with CT abdomen and pelvis without and with IV contrast. Pt went for cystoscopy and Rt ureter stent placement on 04/02/17. His pain is tolerable with current medication. Denied any CP / SOB - Constitutional Vitals: Temp Pulse Resp BP Pulse Ox 98.5 F 79 16 164/92 96 04/05/17 15:06 04/05/17 15:06 04/05/17 15:06 04/05/17 15:06 04/05/17 15:06 General appearance: Present: A&O X 3, pleasant, no acute distress, answers questions appropriately - Head Head exam: Present: atraumatic, normal inspection - Respiratory Respiratory exam: Present: decreased breath sounds. Absent: respiratory distress, rhonchi, wheezes - Cardiovascular Cardiovascular exam: Present: RRR, +S1, +S2. Absent: systolic murmur - Extremities Exam Extremities exam: Absent: calf tenderness, pedal edema, tenderness - Psychiatric Psychiatric exam: Present: normal affect, normal mood Internal Medicine: Result - Labs CBC & Chem 7: 04/03/17 03:42 04/04/17 04:03 - VTE Documentation of Mechanical Device: Intermittent pneumatic compression device Consult Discharge Plan - Plan [facility]errals: [facility] [Primary Care Provider] -
[2017-04-05] MEDS: Levofloxacin 500 MG/100 ML 500 MG/100 ML BAG IVPB SCH (18:10)
[2017-04-05] MEDS ORDERED: hydroCHLOROthiazide 25 MG TABLET PO ONE (22:11)
[2017-04-05] MEDS: Vancomycin 1,250 MG in D5% in Water 250 ML IVPB SCH (23:57)
[2017-04-06] MEDS: *HR* Heparin 5,000 UNIT/ML VIAL SQ SCH ×2 (06:11→18:30)
[2017-04-06] MEDS: Aspirin 81 MG TAB.CHEW PO SCH (09:07)
[2017-04-06] MEDS: Methocarbamol 500 MG TABLET PO SCH ×2 (09:07→19:51)
[2017-04-06] MEDS: Artificial Tears SOLN 15 ML BOTTLE BOTH EYES SCH ×4 (09:07→19:51)
[2017-04-06] MEDS: hydroCHLOROthiazide 25 MG TABLET PO SCH (09:07)
[2017-04-06] MEDS: Vancomycin 1,250 MG in D5% in Water 250 ML IVPB SCH (12:09)
--- NOTE | 2017-04-06 13:15 | Internal Med Progress Note ---
Date of Encounter: 04/06/17 Time of Encounter: 13:12 - Assessment and plan (1) UTI (urinary tract infection) Current Visit: Yes Status: Acute Assessment and plan: Pt's urine cx growing Enterococci faecium Sensitive to Ampicillin so changed his abx to Ampicillin Pt wants to wait till Saturday since he is unable to get his abx from [facility] over the weekend Need 2 week of abx course as per urology recommendation Qualifiers: Urinary tract infection type: site unspecified Hematuria presence: with hematuria Qualified Code(s): N39.0 - Urinary tract infection, site not specified; R31.9 - Hematuria, unspecified (2) Right ureteral calculus Current Visit: Yes Status: Acute Assessment and plan: s/p stent cont close monitoring Urology on board (3) Right renal mass Current Visit: Yes Status: Acute Assessment and plan: Need close f/u as an out pt will arrange for out pt f/u with Nephrology (4) HONG (acute kidney injury) Current Visit: Yes Status: Acute Assessment and plan: Improved avoid any nephro toxic meds (5) Hypertension, essential Current Visit: Yes Status: Acute Assessment and plan: resumed his home meds inc Lisinopril to 10mg stable BP - Subjective Interval history: Mr. Juarez is a 72 year old male transferred from the [facility] urgent care secondary to kidney stone with severe hydronephrosis, elevated white count, UTI , elevated creatinine. CT abdomen and pelvis shows severe right hydronephrosis and hydroureter due to a 7 mm x 6 mm x 6 mm calculus in the distal right ureter there is nonspecific partially calcified area that could represent renal cell carcinoma and could be evaluated further with CT abdomen and pelvis without and with IV contrast. Pt went for cystoscopy and Rt ureter stent placement on 04/02/17. His pain is tolerable with current medication. Denied any CP / SOB - Constitutional Vitals: Temp Pulse Resp BP Pulse Ox 98.3 F 93 16 129/81 91 04/06/17 07:48 04/06/17 07:48 04/06/17 07:48 04/06/17 07:48 04/06/17 07:48 General appearance: Present: A&O X 3, pleasant, no acute distress, answers questions appropriately - Head Head exam: Present: atraumatic, normal inspection - Neck Neck exam general surgery: Present: supple - Respiratory Respiratory exam: Present: CTAB. Absent: accessory muscle use, rales, rhonchi, wheezes - Cardiovascular Cardiovascular exam: Present: RRR, +S1, +S2. Absent: diastolic murmur, gallop, rubs, systolic murmur - GI/Abdominal GI/Abdominal exam: Present: normal bowel sounds, soft. Absent: rebound, tenderness - Extremities Exam Extremities exam: Absent: calf tenderness, pedal edema, tenderness Internal Medicine: Result - Labs CBC & Chem 7: 04/03/17 03:42 04/04/17 04:03 - VTE Documentation of Mechanical Device: Intermittent pneumatic compression device Consult Discharge Plan - Plan [facility]errals: [facility] [Primary Care Provider] -
[2017-04-06] MEDS: Lactobacillus 1 EACH CAP.SPRINK PO SCH ×2 (14:32→19:51)
[2017-04-06] MEDS: Ampicillin 1,000 MG in 0.9 % Sodium Chloride Mini Bag 100 ML IVPB SCH ×3 (14:33→23:51)
[2017-04-06] MEDS: Levofloxacin 500 MG/100 ML 500 MG/100 ML BAG IVPB SCH (19:51)
[2017-04-07 04:04] LABS: Basophils # 0.1 K/mcL (0.0-0.2); Basophils % 0.7 %; Eosinophils # 0.2 K/mcL (0.0-0.6); Eosinophils % 2.2 %; Hematocrit 42.2 % (37.5-50.1); Hemoglobin 14.2 g/dL (12.9-16.9); Immature Granulocytes % 0.7 % (0-4); Lymphocytes # 2.3 K/mcL (0.6-4.6); Mean Corpuscular HGB Conc 33.6 g/dL (31.6-35.5); Mean Corpuscular Hemoglobin 30.6 pg (28.0-33.3); Mean Corpuscular Volume 90.9 fL (83.0-100.0); Mean Platelet Volume 10.7 fL (9.4-12.4); Monocytes # 0.9 K/mcL (0.0-1.3); Monocytes % 8.7 %; Neutrophils # 6.4 K/mcL (1.6-8.9); Platelet Count 206 K/mcL (140-400); Red Blood Count 4.64 M/mcL (4.19-5.50); Red Cell Distribution Width 12.9 % (11.5-14.5); Segmented Neutrophils % 64.7 %
[2017-04-07 04:16] LABS: BUN/Creatinine Ratio 21 (6-26); Blood Urea Nitrogen 25 mg/dL (8-26); Calcium 9.7 mg/dL (8.6-10.8); Carbon Dioxide 26 mEq/L (19-29); Chloride 104 mEq/L (98-109); Glucose 105 mg/dL (70-99); Osmolality,Calculated 293 (280-300); Sodium 139 mEq/L (136-145); eGFR For African Americans > 60 (> 60); eGFR For Non-African Americans > 60 (> 60)
[2017-04-07 04:27] LABS: Potassium 3.8 mEq/L (3.5-4.5)
[2017-04-07] MEDS: Ampicillin 1,000 MG in 0.9 % Sodium Chloride Mini Bag 100 ML IVPB SCH ×2 (06:03→12:34)
[2017-04-07] MEDS: *HR* Heparin 5,000 UNIT/ML VIAL SQ SCH ×2 (06:03→17:34)
[2017-04-07] MEDS: Lactobacillus 1 EACH CAP.SPRINK PO SCH ×2 (08:40→21:04)
[2017-04-07] MEDS: Methocarbamol 500 MG TABLET PO SCH ×2 (08:40→21:04)
[2017-04-07] MEDS: Aspirin 81 MG TAB.CHEW PO SCH (08:40)
[2017-04-07] MEDS: hydroCHLOROthiazide 25 MG TABLET PO SCH (08:40)
[2017-04-07] MEDS: Artificial Tears SOLN 15 ML BOTTLE BOTH EYES SCH ×4 (08:40→21:05)
--- NOTE | 2017-04-07 14:50 | Internal Med Progress Note ---
Date of Encounter: 04/07/17 Time of Encounter: 14:48 - Assessment and plan (1) UTI (urinary tract infection) Current Visit: Yes Status: Acute Assessment and plan: Pt's urine cx growing Enterococci faecium Sensitive to Ampicillin Changed his abx to Ampicillin 1gm IV q6hr # 10/05 Pt wants to wait till Saturday since he is unable to get his abx from [facility] over the weekend Need 2 week of abx course as per urology recommendation Qualifiers: Urinary tract infection type: site unspecified Hematuria presence: with hematuria Qualified Code(s): N39.0 - Urinary tract infection, site not specified; R31.9 - Hematuria, unspecified (2) Right ureteral calculus Current Visit: Yes Status: Acute Assessment and plan: s/p stent cont close monitoring Urology on board (3) Right renal mass Current Visit: Yes Status: Acute Assessment and plan: Need close f/u as an out pt will arrange for out pt f/u with Nephrology (4) HONG (acute kidney injury) Current Visit: Yes Status: Acute Assessment and plan: Improved avoid any nephro toxic meds (5) Hypertension, essential Current Visit: Yes Status: Acute Assessment and plan: resumed his home meds inc Lisinopril to 10mg and cont HCTZ stable BP - Subjective Interval history: Mr. Juarez is a 72 year old male transferred from the [facility] secondary to kidney stone with severe hydronephrosis, elevated white count, UTI , elevated creatinine. CT abdomen and pelvis shows severe right hydronephrosis and hydroureter due to a 7 mm x 6 mm x 6 mm calculus in the distal right ureter there is nonspecific partially calcified area that could represent renal cell carcinoma and could be evaluated further with CT abdomen and pelvis without and with IV contrast. Pt went for cystoscopy and Rt ureter stent placement on 04/02/17. His pain is tolerable with current medication. Denied any CP / SOB - Constitutional Vitals: Temp Pulse Resp BP Pulse Ox 98.1 F 81 17 113/72 95 04/07/17 11:48 04/07/17 11:48 04/07/17 11:48 04/07/17 11:48 04/07/17 11:48 General appearance: Present: A&O X 3, pleasant, no acute distress, answers questions appropriately - Head Head exam: Present: atraumatic, normal inspection - Respiratory Respiratory exam: Present: decreased breath sounds. Absent: respiratory distress, rhonchi, wheezes - Cardiovascular Cardiovascular exam: Present: RRR, +S1, +S2. Absent: systolic murmur - GI/Abdominal GI/Abdominal exam: Present: soft. Absent: rebound, rigid, tenderness - Extremities Exam Extremities exam: Absent: calf tenderness, pedal edema, tenderness - Psychiatric Psychiatric exam: Present: normal affect, normal mood Internal Medicine: Result - Labs CBC & Chem 7: 04/07/17 02:55 04/07/17 02:55 Labs: Short CBC 04/07/17 Range/Units 02:55 WBC 9.9 (4.3-11.1) K/mcL Hgb 14.2 (12.9-16.9) g/dL Hct 42.2 (37.5-50.1) % Plt Count 206 (140-400) K/mcL Neutrophils # 6.4 (1.6-8.9) K/mcL BMP 04/07/17 02:55 Sodium 139 Potassium 3.8 Chloride 104 Carbon Dioxide 26 BUN 25 Creatinine 1.19 Glucose 105 H Calcium 9.7 - VTE Documentation of Mechanical Device: Intermittent pneumatic compression device Consult Discharge Plan - Plan [facility]errals: [facility] [Primary Care Provider[facility] -
[2017-04-07] MEDS: Amoxicillin 500 MG CAPSULE PO SCH (21:04)
[2017-04-08] MEDS: *HR* Heparin 5,000 UNIT/ML VIAL SQ SCH (06:15)
[2017-04-08] MEDS: hydroCHLOROthiazide 25 MG TABLET PO SCH (08:08)
[2017-04-08] MEDS: Methocarbamol 500 MG TABLET PO SCH (08:08)
[2017-04-08] MEDS: Amoxicillin 500 MG CAPSULE PO SCH (08:08)
[2017-04-08] MEDS: Lactobacillus 1 EACH CAP.SPRINK PO SCH (08:08)
[2017-04-08] MEDS: Aspirin 81 MG TAB.CHEW PO SCH (08:08)
[2017-04-08] MEDS: Artificial Tears SOLN 15 ML BOTTLE BOTH EYES SCH ×2 (08:09→12:16)
[2017-04-08 11:07] VITALS: BP 110/68
[2017-04-08] MEDS ORDERED: Aminoglycoside Consult 1 EACH MC ONE (13:27)
--- NOTE | 2017-04-08 13:32 | Discharge Summary ---
Date of Encounter: 04/08/17 Time of Encounter: 13:27 - Discharge Diagnosis (1) UTI (urinary tract infection) Priority: Primary Status: Acute Qualifiers: Urinary tract infection type: site unspecified Hematuria presence: with hematuria Qualified Code(s): N39.0 - Urinary tract infection, site not specified; R31.9 - Hematuria, unspecified (2) Right ureteral calculus Priority: Primary Status: Acute (3) Right renal mass Priority: Secondary Status: Acute (4) HONG (acute kidney injury) Priority: Secondary Status: Acute (5) Hypertension, essential Priority: Secondary Status: Acute - Discharge Medications Prescriptions: Amoxicillin [Amoxil] 500 mg PO Q8HR #21 Lisinopril [Zestril] 10 mg PO DAILY #30 tablet Saccharomyces Boulardii [Florastor] 250 mg PO BID #14 capsule Home Medications: Aspirin 81 mg PO DAILY 04/01/17 [History] Carboxymethylcellulose Sodium [Refresh Liquigel] 1 drop BOTH EYES QID 04/01/17 [ History] Methocarbamol [Robaxin] 500 mg PO BID 04/01/17 [History] Multivitamin [Multi-Day Vitamins] 1 each PO DAILY 04/01/17 [History] Naproxen [Naprosyn] 500 mg PO BID 04/01/17 [History] [place]-3/Dha/Epa/Fish Oil [Fish Oil 1,000 mg Softgel] 1,000 mg PO DAILY 04/01/17 [History] Omeprazole Magnesium [Prilosec Otc] 20 mg PO DAILY 04/01/17 [History] Terazosin HCl 4 mg PO 1800 04/01/17 [History] hydroCHLOROthiazide [Hydrochlorothiazide] 12.5 mg PO DAILY 04/01/17 [History] Amoxicillin [Amoxil] 500 mg PO Q8HR #21 04/08/17 [Rx] Lisinopril [Zestril] 10 mg PO DAILY #30 tablet 04/08/17 [Rx] Saccharomyces Boulardii [Florastor] 250 mg PO BID #14 capsule 04/08/17 [Rx] Allergies/Adverse Reactions: Allergies cefdinir [From Omnicef] Allergy (Verified 04/01/17 14:02) See Comments Date of admission: 04/01/17 14:56 [facility] care physician: [facility] Consults: 04/05/17 12:16 Consult to [facility] [CONS] Routine Reason for SW Consult: atb - Patient Status Disposition: Home, Self-Care Condition: Good Overall status at discharge: patient is back to baseline - Discharge Instructions Follow Up With: [facility] [Primary Care Provider] - Additional Instructions: Need to f/u with PCP in one week Need f/u with Urologist Dr. Melchor Wall in one week Need to f/u with [facility] in 2-3 weeks for your Rt renal mass - Diet and Activity Activity: increase activity as tolerated Diet: advance to your usual diet Hospital course: Mr. Juarez is a 72 year old male transferred from the [facility] urgent care secondary to kidney stone with severe hydronephrosis, elevated white count, UTI , elevated creatinine. CT abdomen and pelvis shows severe right hydronephrosis and hydroureter due to a 7 mm x 6 mm x 6 mm calculus in the distal right ureter there is nonspecific partially calcified area that could represent renal cell carcinoma. Pt was admitted here and started him on empirical abx with Levofloxacin. Pt went for cystoscopy and Rt ureter stent placement on 04/02/17. urologist recommend culture specific abx for 2 weeks. His urine cx started growing Enterococci faecium, initially he was placed on Vancomycin later switched to Ampicillin. Pt denied any fever / chills. No Nausea / vomiting. Pt will be discharged home today with PO Abx Amoxicillin 500mg TID for 7 more days. Recommend to f/u with Urologist as an out pt in 1 week. Regarding his renal mas, recommend to f/u with [facility] closely for further work up. - Time Spent with Patient Total time spent providing and/or coordinating discharge services: - Constitutional Vitals: Temp Pulse Resp BP Pulse Ox 98.3 F 88 16 110/68 95 04/08/17 11:03 04/08/17 11:03 04/08/17 11:03 04/08/17 11:03 04/08/17 11:03 General appearance: Present: A&O X 3, pleasant, no acute distress, answers questions appropriately - Head Head exam: Present: atraumatic, normal inspection - Neck Neck exam general surgery: Present: supple - Respiratory Respiratory exam: Present: wheezes. Absent: respiratory distress, rhonchi - Cardiovascular Cardiovascular exam: Present: RRR, +S1, +S2. Absent: systolic murmur - GI/Abdominal GI/Abdominal exam: Present: soft. Absent: distended, guarding, rebound, rigid, tenderness - Extremities Exam Extremities exam: Absent: calf tenderness, pedal edema, tenderness - Neurological Exam Neurological exam: Present: alert, oriented X3 - VTE Documentation of Mechanical Device: Intermittent pneumatic compression device
== END 2017-04-08 14:50 | disposition home or self-care (01) | DRG 694 ==
LOC: EMEROO 13:32 → 3BNU 14:56 → SUATTDRO 14:56 → 3BNU 15:59
PROVIDERS: ADMIT Internal Medicine Endocrinology, Diabetes & Metabolism; ATTEND Nurse Practitioner Family

== ENCOUNTER 2021-06-06 10:35 | Inpatient (IN) ==
[2021-06-06] MEDS ORDERED: *HR* FentaNYL (PF) 100 MCG/2 ML VIAL IVP PRN (11:23)
[2021-06-06] MEDS ORDERED: *HR* HYDROmorphone PF 0.5 MG/0.5 ML SYRINGE IVP PRN (11:23)
[2021-06-06] MEDS ORDERED: levoFLOXacin 500 MG/100 ML 500 MG/100 ML BAG IVPB ONE (11:40)
[2021-06-06] MEDS ORDERED: MetroNIDAZOLE 500 MG/100 ML 500 MG/100 ML BAG IVPB ONE (11:42)
[2021-06-06] MEDS ORDERED: Ringers Solution, Lactated 1,000 ML IVC SCH (11:45)
[2021-06-06] MEDS ORDERED: *HR* FentaNYL (PF) 100 MCG/2 ML VIAL ONE ×2 (12:20→14:13)
[2021-06-06] MEDS ORDERED: *HR* Propofol 200 MG/20 ML VIAL IVP ONE (12:20)
[2021-06-06] MEDS ORDERED: *HR* Rocuronium Bromide 50 MG/5 ML VIAL ONE ×2 (12:25→15:05)
[2021-06-06] MEDS ORDERED: Lidocaine -MPF 2% 2 ML VIAL ONE (12:25)
[2021-06-06] MEDS ORDERED: *HR* Succinylcholine 200 MG/10 ML VIAL IVP ONE (12:25)
[2021-06-06] MEDS ORDERED: Lidocaine HCL 4 ML Topical Solution (Laryng-O-Jet Kit Sterile Pak) TP ONE (12:27)
[2021-06-06] MEDS ORDERED: Ondansetron 4 MG/2 ML VIAL ONE (12:28)
[2021-06-06] MEDS ORDERED: EPHEDrine 50 MG/ML VIAL ONE (14:03)
[2021-06-06] MEDS ORDERED: *HR* HYDROMORPHONE 2 MG/ML VIAL ONE (14:59)
[2021-06-06] MEDS ORDERED: Sugammadex Sodium 200 MG/2 ML VIAL IV ONE (17:17)
[2021-06-06] MEDS ORDERED: Morphine Sulfate Oral CONC 10 MG/0.5 ML ORAL.SYG SL PRN (18:43)
[2021-06-06] MEDS ORDERED: Ondansetron 4 MG/2 ML VIAL IVP PRN (18:43)
[2021-06-06] MEDS ORDERED: Naloxone 0.4 MG/ML INJ IVP PRN (18:43)
[2021-06-06] MEDS ORDERED: *HR* OxyCODONE/APAP 5/325 TABLET PO PRN (18:43)
[2021-06-06] MEDS: 0.9 % Sodium Chloride 1,000 ML IVC SCH (19:27)
[2021-06-06] MEDS: MetroNIDAZOLE 500 MG/100 ML 500 MG/100 ML BAG IVPB SCH (21:09)
[2021-06-06] MEDS ORDERED: *HR* HYDROmorphone 20 MG/20 ML PCA IVC PRN (21:32)
[2021-06-07] MEDS: MetroNIDAZOLE 500 MG/100 ML 500 MG/100 ML BAG IVPB SCH (06:05)
[2021-06-07 08:02] LABS: Basophils % 0.1 %; Hematocrit 36.4 % (37.5-50.1); Hemoglobin 11.7 g/dL (12.9-16.9); Immature Granulocytes % 0.3 % (0-4); Lymphocytes # 0.7 K/mcL (0.6-4.6); Lymphocytes % 7.3 %; Mean Corpuscular HGB Conc 32.1 g/dL (31.6-35.5); Mean Corpuscular Hemoglobin 30.2 pg (28.0-33.3); Mean Corpuscular Volume 93.8 fL (83.0-100.0); Mean Platelet Volume 11.2 fL (9.4-12.4); Monocytes # 0.6 K/mcL (0.0-1.3); Monocytes % 6.2 %; Neutrophils # 8.7 K/mcL (1.6-8.9); Platelet Count 173 K/mcL (140-400); Red Blood Count 3.88 M/mcL (4.19-5.50); Red Cell Distribution Width 12.6 % (11.5-14.5); Segmented Neutrophils % 86.1 %; White Blood Count 10.1 K/mcL (4.3-11.1)
[2021-06-07 08:22] LABS: BUN/Creatinine Ratio 14 (6-26); Blood Urea Nitrogen 11 mg/dL (8-23); Calcium 8.2 mg/dL (8.6-10.3); Carbon Dioxide 23 mEq/L (23-29); Chloride 109 mEq/L (98-107); Glucose 125 mg/dL (70-105); Osmolality,Calculated 287 (280-300); Sodium 138 mEq/L (136-145); eGFR For African Americans > 60 (> 60); eGFR For Non-African Americans > 60 (> 60)
[2021-06-07] MEDS ORDERED: 0.9 % Sodium Chloride 1,000 ML IVC SCH (08:41)
[2021-06-07] MEDS: 0.9 % Sodium Chloride 1,000 ML IVC SCH (08:54)
[2021-06-07] MEDS ORDERED: lisinopriL 10 MG TABLET PO SCH (09:00)
[2021-06-07] MEDS: Aspirin 81 MG TAB.CHEW PO SCH (09:32)
[2021-06-07] MEDS: methocarbamoL 500 MG TABLET PO SCH ×2 (09:32→19:52)
[2021-06-07] MEDS: Ketorolac 15 MG/ML VIAL IVP SCH ×3 (11:57→23:21)
[2021-06-07] MEDS: *HR* Heparin 5,000 UNIT/ML VIAL SQ SCH (17:33)
[2021-06-08] MEDS: *HR* Heparin 5,000 UNIT/ML VIAL SQ SCH (05:52)
[2021-06-08] MEDS: Ketorolac 15 MG/ML VIAL IVP SCH ×2 (05:52→12:28)
[2021-06-08] MEDS: Aspirin 81 MG TAB.CHEW PO SCH (09:57)
[2021-06-08] MEDS: methocarbamoL 500 MG TABLET PO SCH (09:58)
[2021-06-08] MEDS ORDERED: Metoclopramide 10 MG/2 ML VIAL IVP ONE (10:01)
[2021-06-08] MEDS ORDERED: Metoclopramide 20 MG in 0.9 % Sodium Chloride 50 ML IVPB ONE (10:15)
[2021-06-08 12:03] VITALS: BP 117/63; PULSE 81; TEMP 98.1; O2SAT 96
== END 2021-06-08 16:00 | disposition home or self-care (01) | DRG 331 ==
LOC: SAMDAY 10:35 → 3BNU 18:42
PROVIDERS: ADMIT Surgery; ATTEND Surgery

== ENCOUNTER 2021-06-20 15:27 | Observation (INO) ==
[2021-06-20] MEDS ORDERED: Morphine Sulfate Oral CONC 10 MG/0.5 ML ORAL.SYG SL PRN (16:46)
[2021-06-20] MEDS ORDERED: Ondansetron 4 MG/2 ML VIAL IVP PRN (16:46)
[2021-06-20] MEDS ORDERED: *HR* OxyCODONE/APAP 5/325 TABLET PO PRN (16:46)
[2021-06-20] MEDS: *HR* Heparin 5,000 UNIT/ML VIAL SQ SCH (20:06)
[2021-06-20] MEDS: 0.9 % Sodium Chloride 1,000 ML IVC SCH (20:07)
[2021-06-20] MEDS: lisinopriL 10 MG TABLET PO SCH (21:15)
[2021-06-21 03:32] LABS: Basophils # 0.1 K/mcL (0.0-0.2); Basophils % 0.8 %; Eosinophils # 0.2 K/mcL (0.0-0.6); Eosinophils % 2.9 %; Hematocrit 37.8 % (37.5-50.1); Hemoglobin 12.4 g/dL (12.9-16.9); Immature Granulocytes % 0.1 % (0-4); Lymphocytes # 1.6 K/mcL (0.6-4.6); Lymphocytes % 22.7 %; Mean Corpuscular HGB Conc 32.8 g/dL (31.6-35.5); Mean Corpuscular Hemoglobin 30.8 pg (28.0-33.3); Mean Corpuscular Volume 93.8 fL (83.0-100.0); Mean Platelet Volume 11.4 fL (9.4-12.4); Monocytes # 0.5 K/mcL (0.0-1.3); Monocytes % 7.1 %; Neutrophils # 4.8 K/mcL (1.6-8.9); Platelet Count 187 K/mcL (140-400); Red Blood Count 4.03 M/mcL (4.19-5.50); Red Cell Distribution Width 12.7 % (11.5-14.5); Segmented Neutrophils % 66.4 %; White Blood Count 7.2 K/mcL (4.3-11.1)
[2021-06-21 03:52] LABS: BUN/Creatinine Ratio 9 (6-26); Blood Urea Nitrogen 7 mg/dL (8-23); Calcium 8.6 mg/dL (8.6-10.3); Carbon Dioxide 24 mEq/L (23-29); Chloride 108 mEq/L (98-107); Glucose 90 mg/dL (70-105); Magnesium 2.2 mg/dL (1.6-2.6); Osmolality,Calculated 290 (280-300); Phosphorous 2.9 mg/dL (2.7-4.5); Potassium 3.4 mEq/L (3.5-5.1); Sodium 141 mEq/L (136-145); eGFR For African Americans > 60 (> 60); eGFR For Non-African Americans > 60 (> 60)
[2021-06-21] MEDS: 0.9 % Sodium Chloride 1,000 ML IVC SCH ×2 (04:05→17:11)
[2021-06-21] MEDS: *HR* Heparin 5,000 UNIT/ML VIAL SQ SCH ×2 (05:36→21:42)
[2021-06-21] MEDS ORDERED: Isovue-370 500 ML BOTTLE IVP ONE ×2 (07:42→08:37)
[2021-06-21] MEDS: lisinopriL 10 MG TABLET PO SCH (08:34)
[2021-06-22] MEDS: *HR* Heparin 5,000 UNIT/ML VIAL SQ SCH (06:13)
[2021-06-22] MEDS: lisinopriL 10 MG TABLET PO SCH (08:55)
[2021-06-22 14:58] VITALS: BP 143/45; PULSE 70; TEMP 98.4; O2SAT 95
== END 2021-06-22 15:22 | disposition home or self-care (01) ==
LOC: 3ANU
PROVIDERS: ADMIT Surgery; ATTEND Surgery